=== PATIENT | female | born 1955 | race Caucasian/White ===

== ENCOUNTER 2021-12-20 10:54 | Outpatient (AMB) | payer MEDICARE, BC, SELFPAY ==
[2021-12-20 11:17] VITALS: BP 129/77; PULSE 106; RESP 19; TEMP 37.1; BMI 31.0
--- NOTE | 2021-12-20 11:17 | URONOTE_ITS ---
Intake Vital Signs 12/20/21 11:17 Height 1.52 m Height Method Stated Weight 72.121 kg Weight Measurement Method Standing Scale BMI 31.0 Temp 98.7 F Temp Source Temporal Artery Scan Pulse 106 H Pulse Source Monitor Respiration 19 BP 129/77 Blood Pressure Source Automatic Cuff Blood Pressure Location Left Upper Arm Position Sitting Intake Visit Reasons: Uro Cystocopy in office Allergy Allergies Penicillins Allergy (Severe, Verified 12/20/21 11:18) Difficulty Breathing lorazepam [From Ativan] Adverse Reaction (Intermediate, Verified 12/20/21 11:18) Agitated Home Meds Medication Reconciliation albuterol sulfate 90 mcg/actuation aerosol inhaler 2 puff INHALATION Q4H PRN 12/08/20 [History Confirmed 12/20/21] levothyroxine 88 mcg tablet (Synthroid) 88 mcg PO QDAY 12/08/20 [History Confirmed 12/20/21] fluticasone propionate 50 mcg/actuation nasal spray,suspension (Aller-Codey) 1 spray INTRANASAL BID 08/20/21 [History Confirmed 12/20/21] magnesium carb,citrate,oxide (Magnesium Complex) 300 mg PO DAILY 08/20/21 [His tory Confirmed 12/20/21] tamsulosin 0.4 mg capsule 0.4 mg PO QDAY 08/20/21 [History Confirmed 12/20/21] tramadol 50 mg tablet 50 mg PO Q6H PRN #14 tab 09/18/21 [Rx Confirmed 12/20/21] nitrofurantoin monohydrate/macrocrystals 100 mg capsule (Macrobid) 100 mg PO BID #7 cap 10/23/21 [Rx Confirmed 12/20/21] tamsulosin 0.4 mg capsule (Flomax) 0.4 mg PO QDAY #60 cap 10/23/21 [Rx Confirmed 12/20/21] Current Vital Signs Height Height Method Weight Weight Measurement Method Body Mass Index Temperature Temperature Source 1.52 m Stated 72.121 kg Standing Scale 31.0 98.7 F Temporal Artery Scan 12/20/21 11:17 12/20/21 11:17 12/20/21 11:17 12/20/21 11:17 12/20/21 11:17 12/20/21 11:17 12/20/21 11:17 Pulse Rate Pulse Source Respiratory Rate Blood Pressure Blood Pressure Source Blood Pressure Location Blood Pressure Position 106 H Monitor 19 129/77 Automatic Cuff Left Upper Arm Sitting 12/20/21 11:17 12/20/21 11:17 12/20/21 11:17 12/20/21 11:17 12/20/21 11:17 12/20/21 11:17 12/20/21 11:17 Nursing Documentation Social History Living Situation History Lives With: Family Housing: House Housing Other:: Lives with his . Daughter lives next door Tobacco History Smoking Status: Never smoker Alcohol History Alcohol Intake: Current Office Procedures Uro Cystoscopy in office Office Procedure Informed consent given: Yes Consent signed: Yes Time out staff in room: Yes IMMEDIATELY PRIOR TO START OF PROCEDURE: ALL MEMBERS of the procedural team are in attendance and actively involved together in the TIME-OUT and verified as applies to the patient:: Correct Patient Identity, Correct Site, Consent Signed and Accurate, Team Agrees on Procedure, Patient has completed pre-procedure pr eparations, Antibiotic prophylaxis, Pre-procedure medications, Review of allergies and potential blood loss, Safety Precautions are in place based on patient history, Correct Patient Positioning, Procedural site marked by appropriate provider, Procedural site marking is visible after prep and draping, Relevant images and results are properly labeled and displayed, Reqd blood products, implants, devices and necessary equip available, Specimen container(s) and lab req(s) are available & labeled properly., H&P, assessments, and other pertinent documents are available and Antibiotics are administered, antibiotic irrigation fluids prepared. Time out verified: Yes Time out date: 12/20/21 Time out time: 12:06 Sterilizing agent: betadine Type of anesthesia: local Type of scope: rigid Charges for this visit: My Supervising Practitioner for this visit is:: Andrea Alcantara Uro Level of Care Nursing/Assessment/Reassessment Patient Status: Established Patient Nursing Assessment/Reassessment: Update [facility] data in EMR, Vital Signs and Medication Reconciliation Coordination of Care: Comp Pt/Fam Ed for care and Consent,records obtained Miscellaneous Interventions: Phys Asssit w/procedure Established Patient Point Assignment: 80 Procedure IM Injection: Yes Transrectal Ultrasound: No Office Meds gentamicin Performing Provider: Andrea Alcantara MD Administered by: LUCIO Cabrera on 12/20/21 11:40 Dose Route Admin Location Lot Number Expiration Date [facility] [employer] 120 mg IM right glut lidocaine HCl Performing Provider: Andrea Alcantara MD Administered by: LUCIO Cabrera on 12/20/21 11:40 Dose Route Admin Location Lot Number Expiration Date [place] [employer] 1 applic topical hydrocodone-acetaminophen 5-325 mg Performing Provider: Andrea Alcantara MD Administered by: LUCIO Cabrera on 12/20/21 11:40 Dose Route Admin Location Lot Number Expiration Date [place] [employer] 1 tab PO [facility] Office Visit Office Visit Date of visit:: December 20, 2021 10:54 Allergies & Home Medications: Allergies Penicillins Allergy (Severe, Verified 10/23/21 12:37) Difficulty Breathing lorazepam [From Ativan] Adverse Reaction (Intermediate, Verified 10/23/21 12:37) Agitated Visit: Reason for visit: [] Office Visit findings: [] Urology Cystoscopy Cystoscopy Procedure Date: December 20, 2021 10:54 Pre-procedure diagnosis:: Left kidney stone s/p left R IR stent placement stone basketing laser stone fragmentation placement of stent Post-procedure diagnosis:: Same Procedure:: Cystoscopic examination removal of left ureteral stent Anesthetic:: 2% lidocaine Indication(s): This is 66-year-old female this patient underwent above procedure she had pl acement of the stent was recommended removal of the stent procedure and complications were discussed with patient in great detail informed consent is obtained Procedure Description:: The patient received 120 mg Gentamicin IM pre-op prophylaxis. Informed consent was obtained for the procedure. The patient was prepped in a sterile manner. Local anesthetic was placed in the urethra. Cystoscopy was then performed. The urethra had no intrinsic lesions. Examination of the bladder revealed no evidence of cancerous lesions, papillary or polyp type, lesions or stones. Both ureters were putting out clear urine. Stent was coming out of left ureteral orifice was grasped with a stent grasper and removed . The bladder was completely drained and the scope was removed. The patient tolerated the procedure well. Post-op instructions were given. The patient is to call the office should any problems occur. Patient disposition The size of the stone was 1.7 cm Stone composition is calcium oxalate dihydrate 15%, calcium oxalate monohydrate 70%, calcium carbonate appetite 15% Report of this was given to patient discussed with her in detail recommendation #1 plenty of fluids so that she has urinary output of 2400 cc in 24 hours #2 is ultrasound of the kidneys in 2 months #3 is [facility] and follow-up appointment in urology office
[2021-12-20 11:28] LABS: Bilirubin,Urine Clinitek 1+ (Negative); Blood,Urine Clinitek 3+ (Negative); Glucose, Urine Clinitek Negative (Negative); Ketones,Urine Clinitek Trace (Negative); Leukocyte Esterase,Urine Clin 3+ (Negative); Nitrite,Urine Clinitek Positive (Negative); PH,Urine Clinitek 5.5 (5.0-7.0); Protein,Urine Clinitek 3+ (Neg - Trace); Specific Gravity,Urine Clin 1.025 (1.001-1.030); Urobilinogen,Urine Clinitek 0.2 mg/dL (0.0-1.0)
== END 2021-12-20 12:26 | disposition home or self-care (01) ==
LOC: HODURO 10:54
PROVIDERS: PCP Specialist; Visit Provider Urology

== ENCOUNTER 2024-10-10 08:30 | Day surgery (SDC) | payer MEDICARE, BC, SELFPAY ==
[2024-10-05 11:38] VITALS: BMI 30.7
[2024-10-10] VITALS (10 sets, daily range): BP systolic 119–146; BP diastolic 72–92; PULSE 66–84; RESP 15–21; TEMP 36.3–36.6; O2SAT 92–100; BMI 33.7
[2024-10-10] MEDS: DiphenhydrAMINE INJ 50 MG/ML VIAL 25 MG IV (11:16)
[2024-10-10] MEDS: MIDAZOLAM INJ 1 MG/ML VIAL 2 ML (ASD USE ONLY) 2 MG IV (11:16)
[2024-10-10] MEDS: fentaNYL CIT INJ 50 mCg/ML AMP 2ML (ASD USE ONLY) IV (11:16)
--- NOTE | 2024-10-10 12:07 | SUR.PHASEII ---
1128: Pt received for recovery. Pt groggy. Easily aroused. Resp even, unlabored. VS stable. Denies pain. 1155: Pt more awake, alert. Sitting up tolerating po fluids with no difficulty swallowing and no n/v. 1213: Pt fully awake, oriented x3. Pt assisted to restroom. Ambulation steady. Pt dressed and in transport chair. Pt and daughter stated understanding of discharge instructions. Pt discharged from [facility] in stable condition.
== END 2024-10-10 12:13 | disposition home or self-care (01) ==
PROVIDERS: PCP Specialist; Referring Provider Specialist; Visit Provider Specialist
PROC: 0DBE8ZX Excision of Large Intestine, Via Natural or Artificial Opening Endoscopic, Diagnostic (ICD-10-PCS; CPT 45380; principal; 2024-10-10 09:00)
DX: Z12.11 Encounter for screening for malignant neoplasm of colon (principal); K64.9 Unspecified hemorrhoids; K57.30 Diverticulosis of large intestine without perforation or abscess without bleeding
CPT/HCPCS: G0121; J1200; J2250; J3010

== ENCOUNTER → 2024-10-28 | Outpatient (CLI) | payer MEDICARE, BC, SELFPAY ==
[2024-10-28 14:44] LABS: Basophils % (Auto) 1 % (0-2.5); Eosinophils # (Auto) 0.1 Thou/mm3 (0.0-0.5); Eosinophils % (Auto) 1 % (0-10); Hematocrit 42.3 % (36.0-46.0); Hemoglobin 13.8 g/dL (12.0-16.0); Immature Granulocytes % (Auto) 1 % (0-0); Immature Granulocytes Auto 0.06 Thou/mm3 (0.00-0.00); Lymphocytes # (Auto) 1.5 Thou/mm3 (1.0-4.8); Lymphocytes % (Auto) 22 % (10-50); Mean Corpuscular HGB Conc 32.6 g/dl (31.0-37.0); Mean Corpuscular Hemoglobin 30.3 pg (25.0-35.0); Mean Corpuscular Volume 93 fL (80-100); Monocytes # (Auto) 0.5 Thou/mm3 (0.0-0.8); Monocytes % (Auto) 8 % (0-12); Neutrophils # (Auto) 4.5 Thou/mm3 (1.8-7.7); Neutrophils % (Auto) 67 % (37-80); Nucleated Red Blood Cell % 0 /100 WBC (0); Platelet Count 299 Thou/mm3 (140-440); RDW Standard Deviation 46.4 fL (36.4-46.3); Red Blood Count 4.56 Miln/mm3 (4.00-5.20); White Blood Count 6.6 Thou/mm3 (3.6-11.0)
[2024-10-28 15:05] LABS: Parathyroid Hormone Intact 83.8 pg/ml (18.5-88.0)
[2024-10-28 15:09] LABS: Alanine Aminotransferase 16 U/L (10-49); Albumin, Serum 4.7 gm/dL (3.4-4.8); Alkaline Phosphatase 122 U/L (46-116); Anion Gap 7 (7-16); Aspartate Amino Transferase 16 U/L (0-34); BUN/Creatinine Ratio 17 Ratio (12-20); Bilirubin,Total 0.4 mg/dL (0.3-1.2); Blood Urea Nitrogen 19 mg/dL (9-23); Calcium 10.1 mg/dL (8.3-10.6); Calcium (Corrected) 10.1 mg/dL (8.5-10.1); Carbon Dioxide 29.2 mMol/L (20.0-31.0); Cardiac Risk Estimate 3.5 RATIO (3.7-5.6); Chloride 104 mMol/L (98-107); Cholesterol 256 mg/dL (132-200); Creatinine (Component) 1.1 mg/dL (0.6-1.3); Free T4 (Free Thyroxine) 1.39 ng/dL (0.89-1.76); Globulin 2.4 gm/dL (2.3-3.5); Glucose 104 mg/dL (74-106); HDL Cholesterol 73 mg/dL (40-60); LDL Cholesterol,Calculated 145 mg/dL (0-130); Osmolality,Calculated 281 (275-295); Potassium 4.8 mMol/L (3.4-5.1); Sodium 140 mMol/L (136-145); Thyroid Stimulating Hormone 2.45 uIU/mL (0.55-4.78); Total Protein 7.1 gm/dL (5.7-8.2); Triglycerides 189 mg/dL (30-150); eGFR 54 See Note
[2024-11-10 07:05] LABS: Vitamin D, 25-OH, D2 16 ng/mL; Vitamin D, 25-OH, D3 154 ng/mL; Vitamin D, 25-OH, Total 170 ng/mL (30-100)
== END | disposition home or self-care (01) ==
LOC: COPL 14:10
PROVIDERS: PCP Specialist; Referring Provider Specialist; Visit Provider Specialist
DX: M81.0 Age-related osteoporosis without current pathological fracture (principal); E78.2 Mixed hyperlipidemia; F33.0 Major depressive disorder, recurrent, mild; E03.4 Atrophy of thyroid (acquired); C54.1 Malignant neoplasm of endometrium
CPT/HCPCS: 36415; 80053; 80061; 82306; 83970; 84439; 84443; 84481; 85025

== ENCOUNTER → 2024-10-31 | Outpatient (CLI) | payer MEDICARE, BC, SELFPAY | END | disposition home or self-care (01) | PROVIDERS: PCP Specialist; Referring Provider Specialist; Visit Provider Specialist | DX: Z53.8 Procedure and treatment not carried out for other reasons (principal) ==

== ENCOUNTER → 2024-11-18 | Outpatient (CLI) | payer MEDICARE, BC, SELFPAY ==
--- NOTE | 2024-11-18 10:30 | XR_ITS ---
Examination: Screening digital mammography, bilateral Computer aided detection 3-D breast Tomosynthesis, bilateral Date and time of exam: November 18, 2024 1025 hours Compared to mammograms dating to March 08, 2012 Indication: Screening Technique: Nonmagnified MLO, CC views of the breasts to been obtained, reconstructed from 3-D Tomosynthesis images. R2 computer aided detection program utilized for evaluation of suspicious masses and/or abnormal calcifications. 3-D Tomosynthesis images obtained. Findings: Scattered areas of fibroglandular density. Benign calcifications. No interval suspicious masses Impression: BI-RADS category II: Benign Findings. Recommend 1 year follow-up mammogram.
== END | disposition home or self-care (01) ==
PROVIDERS: PCP Specialist; Referring Provider Specialist; Visit Provider Specialist
DX: Z12.31 Encounter for screening mammogram for malignant neoplasm of breast (principal); R92.323 Mammographic fibroglandular density, bilateral breasts; R92.1 Mammographic calcification found on diagnostic imaging of breast
CPT/HCPCS: 77063; 77067

== ENCOUNTER → 2025-02-09 | Outpatient (CLI) | payer MEDICARE, BC, SELFPAY ==
--- NOTE | 2025-02-09 15:55 | XR_ITS ---
Examination: CT chest, without intravenous contrast. Sagittal and coronal 2-D reconstructions. Exam date and time: February 09, 2025 1711 hours INDICATIONS: Diagnosis pulmonary fibrosis 4 years CTDI:vol (mGy) 13.1 DLP: (mGycm) 150 Technique: Multiple 3.0 mm axial sections of the chest to been obtained. Bone and lung density settings are obtained. Sagittal and coronal 2-D reconstructions have been obtained. Low dose protocols were performed. One or more of the following dose reduction techniques were used; automated exposure control, adjustment of the mA and/or KV according to patient size, use of iterative reconstruction technique. Findings: No thoracic aortic aneurysm dilatation No paratracheal tracheobronchial or bronchopulmonary adenopathy. 4 mm pulmonary nodule left lower lobe image 183 3 mm pulmonary nodule left lower lobe image 207 Moderate pulmonary scarring in the upper lung zones Restrictive airways disease pattern Mildly dilated bronchi in the lower lobes No visualized liver or splenic lesion Cholelithiasis IMPRESSION: Moderate pulmonary scarring in the upper lung zones Restricted airways disease pattern Mild bibasilar bronchiectasis Cholelithiasis
== END | disposition home or self-care (01) ==
PROVIDERS: Referring Provider Specialist; Visit Provider Specialist
DX: R91.8 Other nonspecific abnormal finding of lung field (principal); J47.9 Bronchiectasis, uncomplicated; K80.20 Calculus of gallbladder without cholecystitis without obstruction
CPT/HCPCS: 71250